=== PATIENT | male | born 1980 | race Caucasian/White ===

== ENCOUNTER 2022-10-26 01:44 | Observation (INO) | payer OTHER, SELFPAY ==
--- NOTE | 2022-10-25 | XACV_ITS ---
Exam Room: [facility] Ht: 193 cm Wt: 131 kg BSA: 2.69 m2 Gender: Male : 1980 Any Known Allergies: No known allergies Exam Priority: Routine Procedure(s): Procedure Description: Diagnostic procedure Procedure Description: PCI procedure Procedure Description: Left Heart Catheterization Procedure Description: Coronary IVUS Procedure Description: Drug Eluting Coronary Stent Procedure Description: PTCA Procedure Description: Miscellaneous Procedure Description: ACT Procedure Description: Coronary Angiography Diagnostic Cath Status: Urgent Diagnostic Findings * Russell Dennis is a 42 year old male with past medical history of insulin-dependent diabetes mellitus, hypertension, coronary artery disease, history of acute coronary syndrome in May 2022 and hypothyroidism. Patient was admitted at [facility] and had 3 stents to px to mid LAD and 2 stents to LCx and balloon angioplasty of OM2 on 30 May 2022. Echocardiogram showed LV function of 45% at the time. Patient was doing well since his stents until in September when while exercising in cardiac rehab he developed some chest pain and was hospitalized. He was set up for an outpatient stress test. Since then patient has been having exertional chest discomfort that lasts about 5 minutes or so and is relieved spontaneously. He presented here with chest pains and is being managed for NSTEMI. * Angiography shows a left coronary dominant system. * Separate ostia for left anterior descending and circumflex artery in left coronary sinus. * Left anterior descending artery with ostial 99% stenosis. * Dominant circumflex artery with patent stents in proximal and mid circumflex artery. Very small OM1 and good sized OM2. * Small non dominant right coronary artery with chronic total occlusion of proximal right coronary artery. * Case was discussed and images were reviewed with Dr. Blanchard. PCI Status: Urgent PCI Indication: NSTE - ACS Interventional Findings * Procedure detail: Patient had separate ostia of the left circumflex artery had LAD. As for diagnostic catheterization, selective engagement of LAD could not be performed from radial access, we switched to femoral access. Diagnostic images showed critical ostial to proximal LAD stenosis prior to old stent. LAD was selectively engaged with JL 4 guide catheter. IV heparin was administered to maintain ACT above 250s. 0.014 run-through guidewire was used to cross the critical ostial to proximal LAD stenosis was put in distal vessel. We performed IVUS to size the vessel and look at prior stents. Proximal LAD stent was underexpanded. We predilated the stenosis with 2.5 x 15 mm semicompliant balloon. This was followed with placement of 3.5 x 22 mm resolute Alexi drug-eluting stent. Stent and prior stents were postdilated with a 3.75 mm NC balloon. At this time final angiogram was performed that showed excellent stent expansion, no residual stenosis and SHAAN-3 flow. IVUS also confirmed these findings. Guidewire and guide catheter were removed. Patient left the Construction Skills Teacher in a stable condition.. * Proximal Left Anterior Descendin% stenosis treated with a AB TREK 2.50X15 RX BALLOON, MDT R ALEXI 3.5X22 AYANNA, and MDT NC EUPHORA RX [id number] BALLOON. 0% residual stenosis, SHAAN: 3 flow. * Proximal Left Anterior Descendin% stenosis treated with a AB TREK 2.50X15 RX BALLOON, MDT R ALEXI 3.5X22 AYANNA, and MDT NC EUPHORA RX [id number] BALLOON. * Mid Left Anterior Descendin% stenosis treated with a MDT HAMLET EUPHORA RX [id number] BALLOON. 0% residual stenosis, SHAAN: 3 flow. Conclusions Critical ostial-proximal LAD stenosis. Status post successful IVUS guided revascularization with AYANNA x1. Left anterior descending artery with ostial 99% stenosis. Patent stents in circumflex and mid left anterior descending artery. Proximal Left Anterior Descending was treated with a Balloon, Drug Eluting Stent, and Balloon. Mid Left Anterior Descending was treated with a Balloon. Recommendations Return to inpatient for close monitoring and routine cath care. Statin and aspirin 81mg lifelong, if tolerated. Effient and Aspirin x 12 months. Outpatient cardiology follow-up in 4 weeks. Pressures Phase:Rest AO : 94 / 60 ( 70 ) @ 9:36:00 AM 99 / 37 ( 58 ) @ 9:36:00 AM 112 / 70 ( 87 ) @ 9:41:00 AM 102 / 68 ( 82 ) @ 9:59:00 AM 103 / 73 ( 88 ) @ 10:16:00 AM 93 / 68 ( 80 ) @ 10:31:00 AM 104 / 73 ( 88 ) @ 10:50:00 AM 98 / 76 ( 88 ) @ 10:53:00 AM LV : 118 / 5 / 21 @ 9:35:00 AM 103 / 6 / 19 @ 9:36:00 AM Valves Phase:DefaultPhase AV : 8.0 @ 11:52:24 AM AV Mean Gradient: 8.0 @ 11:52:24 AM Hemodynamic Data Phase:Rest AO : 94.0 / 60.0 ( 70.0 ) @ 9:36:00 AM 99.0 / 37.0 ( 58.0 ) @ 9:36:00 AM 112.0 / 70.0 ( 87.0 ) @ 9:41:00 AM 102.0 / 68.0 ( 82.0 ) @ 9:59:00 AM 103.0 / 73.0 ( 88.0 ) @ 10:16:00 AM 93.0 / 68.0 ( 80.0 ) @ 10:31:00 AM 104.0 / 73.0 ( 88.0 ) @ 10:50:00 AM 98.0 / 76.0 ( 88.0 ) @ 10:53:00 AM Clinical Evaluation EBL: 5mL-10mL Procedural Details Procedure Consent Obtained. Pre-Procedure Time Out. Identified patient by full name and date of as verbalized by the patient/guarantor. Does the consent match the physician's order: Yes. Accurate & Complete Informed Consent: Yes. Inpatient/Outpatient History & Physical on Chart: Yes. If H&P is completed, is and addenduem needed: Yes. Visualize and Verify Site with Patient/Guarantor: N/A. Relevant Radiology Images available: Yes. The risks, benefits, and alternatives of sedation and/or procedure were discussed by physician. The patient agrees to continue. Procedure started. [facility] Clinical Fraility Score: 3: Managing Well. Construction Skills Teacher Indications: ACS > 24 hours/NSTEMI. Chest Pain Symptom Assessment: Typical Angina Symptoms. Cardiovascular Instability: No. Correct patient, site and procedure confirmed by cath team. Current diagnosis: NSTEMI. PERRLA. Strong, equal hand training project manager bilaterally. Lungs clear x 5 lobes. IV Site on Arrival: 18 gauge in the left anticubital. IV Fluids: 0.9% NaCl at KVO. 0 mL infused prior to labor economics professor. Pre Procedural Pulses: bilateral dorsalis pedis was 3+. Pre Procedural Pulses: bilateral posterior tibial was 3+. Pre Procedural Pulses: bilateral radial was 3+. Oxygen started at 2liters/min via nasal canula. right groin was prepped with chloroprep then draped in the usual sterile fashion. right radial was prepped with chloroprep then draped in the usual sterile fashion. Physician notified. Baseline sample Acquired. HR: 58 BPM. Patients spouse, Rola, on her way to the hospital. Dr. Milton will update when available. Equipment: 6F - Radial. Cardiac Cath Pack. ACIST Manifold Kit Model BT 2000. Heparinized Saline (2 units/mL), 1000 mL bag. Physician arrived. Physician scrubbed in. Immediate Pre-Procedure Time Out. Correct Patient: Yes; Correct Procedure: Yes; Correct Site: Yes; Correct Patient Position: Yes; Correct Supplies: Yes; Dried Flammable Prep: Yes; Blood Products Available: N/A;. Lidocaine 1% infiltrated to the right radial. Arterial access obtained. A 5 romanian TIG catheter in over the exchange J wire. Multiple views taken of left coronary artery. EDP Sample taken: LV 118/5,21; HR: 69 BPM; SpO2: 97%. Pullback taken: LV 103/6,19; AO 94/60(70); Mean: 8mmHg, Peak to Peak: 8mmHg, SEP: 13sec/min; HR: 62 BPM; SpO2: 96%. Catheter redirected to the RCA unsuccessfully. Catheter removed over the exchange J wire. A 5 romanian TIG catheter in over the exchange J wire. Catheter removed over the exchange J wire. A 5 romanian JL3.5 catheter in over the exchange J wire. Exchange wire out. Hand injection of the right arm performed through the JL 3.5 catheter. 0.035 x 260cm Stiff Angled glidewrie in to advance the JL 3.5. Glidewire out, exchange J wire in. Catheter removed over the exchange J wire. A 5 romanian JR4 catheter in over the exchange J wire. Cineography of the RCA performed. Catheter removed over the exchange J wire. Dr. Blanchard scrubbed in. 6 romanian XB 3.5 guide catheter was inserted over the exchange J wire. Add inventory: Co-Entertainment Centre Manager, endoflator. Dr. Milton scrubbed out. Runthrough guidewire was advanced through the guide catheter to lesion in the ostial LAD. Dr Milton updated the spouse, Rola, in the labor economics professor waiting room. Wire out. Guide catheter out. Aborting radial access, moving to femoral. A TR Band was successful obtaining hemostatsis at the Right Radial artery insertion site. TR band placed. Hemostasis obtained. Lidocaine 1% infiltrated to the right groin. Add inventory: micropuncture kit, 6 fr femoral sheath. Arterial access obtained with micropuncture set. A 5 romanian JL4 catheter in over the exchange J wire. Multiple views taken of left coronary artery. Catheter removed over the exchange J wire. 6 romanian JL 4 guide catheter was inserted over the exchange J wire. Runthrough guidewire was advanced through the guide catheter to lesion in the ostial LAD. ACT drawn. Results 436 seconds. Therapeutic limits - pre-heparin administration 90-150 seconds and monitoring heparin during a vascular procedure >250 seconds. IVUS catheter in, unable to cross, removed intact. Inflation number : 1 A AB TREK 2.50X15 RX BALLOON was prepped and advanced across the Prox LAD , then inflated to 10 REY for 0:26 seconds. Inflation number: 2 The AB TREK 2.50X15 RX BALLOON was reinflated across the Prox LAD, to 10 REY for 0:14 seconds. Inflation number: 3 The AB TREK 2.50X15 RX BALLOON was reinflated across the Prox LAD, to 10 REY for 0:22 seconds. Balloon out. IVUS catheter in. IVUS run performed. IVUS catheter out. Inflation Number : 4 A MDT R ALEXI 3.5X22 AYANNA -Lot Number# [id number] was prepped and advanced across the Prox LAD. The stent was deployed at 12 REY for 0:32 seconds. Exp 2025-02-19. Stent balloon out over wire. Results checked. ACT drawn. Results 512 seconds. Therapeutic limits - pre-heparin administration 90-150 seconds and monitoring heparin during a vascular procedure >250 seconds. Inflation number : 1 A MDT NC EUPHORA RX 3.28L73VO BALLOON was prepped and advanced across the Mid LAD , then inflated to 10 REY for 0:15 seconds. Inflation number: 2 The MDT NC EUPHORA RX 3.90M27WV BALLOON was reinflated across the Mid LAD, to 10 REY for 0:16 seconds. Inflation number: 5 The MDT NC EUPHORA RX 3.31Y74OH BALLOON was reinflated across the Prox LAD, to 14 REY for 0:15 seconds. Inflation number: 6 The MDT NC EUPHORA RX 3.87L99SD BALLOON was reinflated across the Prox LAD, to 12 REY for 0:12 seconds. Balloon out. Results checked. IVUS catheter in. IVUS run performed. IVUS catheter out. Wire out. Guide catheter out over the exchange J wire. ACT drawn. Results 200 seconds. Therapeutic limits - pre-heparin administration 90-150 seconds and monitoring heparin during a vascular procedure >250 seconds. A Right femoral angiogram was performed to determine safe placement of closure device. A Angio-Seal VIP (St. Bo) was successful obtaining hemostatsis at the Right Femoral artery insertion site. Angioseal placed without complications. No signs or symptoms of hematoma noted. Sterile dressing applied per usual sterile fashion. Lot #[id number]. Exp. 2023-05-01. Post Procedure: Pulses reassessed and unchanged. PERRLA. Strong, equal hand training project manager bilaterally. No VTE prophylaxis required. Complications: none. Estimated blood loss: 5mL-10mL. PCI Indication: NSTE. Post-op diagnosis: PCI of the ostial LAD. PTCA of the mid LAD for In stent stenosis, chronically occluded RCA. Medication's Wasted: Nitro = 49.6 mg. Medication's Wasted: Other = Versed 1 mg. Total IV fluids: 142 mL. Responsiveness - Normal response to verbal stimuli; alert and oriented, PERRLA. Airway - Unaffected, no intervention required; spontaneous ventilation. Circulation: W/N/L, pulses unchanged. Nausea/Vomiting: No. Procedure completed. Patient transferred by bed to 1st floor. Vital chart was stopped. Access Site Site: Right Radial artery Sheath Size: 5 Fr Hemostasis Method: TR Band Hemostasis Success: Successful Site: Right Femoral artery Sheath Size: 6 Fr Hemostasis Method: Angio-Seal VIP (St. Bo) Hemostasis Success: Successful Procedure Medications Start: 9:16 AM Stop: 9:16 AM Medication: Versed Amount: 1 mg Route: I.V. Start: 9:16 AM Stop: 9:16 AM Medication: Fentanyl Amount: 50 mcg Route: I.V. Start: 9:17 AM Stop: 9:17 AM Medication: Versed Amount: 1 mg Route: I.V. Start: 9:17 AM Stop: 9:17 AM Medication: Fentanyl Amount: 50 mcg Route: I.V. Start: 9:23 AM Stop: 9:23 AM Medication: Nitrogylcerin Amount: 200 mcg Route: I.A. Start: 9:24 AM Stop: 9:24 AM Medication: Heparin Amount: 5000 units Route: I.V. Start: 9:32 AM Stop: 9:32 AM Medication: Versed Amount: 1 mg Route: I.V. Start: 9:52 AM Stop: 9:52 AM Medication: Verapamil Amount: 5 mg Route: I.A. Start: 10:10 AM Stop: 10:10 AM Medication: Nitrogylcerin Amount: 200 mcg Route: I.A. Start: 10:19 AM Stop: 10:19 AM Medication: Heparin Amount: 2000 units Route: I.V. Start: 10:34 AM Stop: 10:34 AM Medication: Heparin Amount: 5000 units Route: I.V. Start: 10:52 AM Stop: 10:52 AM Medication: Versed Amount: 1 mg Route: I.V. Start: 10:54 AM Stop: 10:54 AM Medication: Heparin Amount: 2000 units Route: I.V. Start: 10:59 AM Stop: 10:59 AM Medication: Heparin Amount: 3000 units Route: I.V. I, the attending physician, have reviewed and verified all procedure medications. Yes, all medications given per verbal order History/Risk Factors Hypertension: Yes Dyslipidemia: Yes Peripheral Arterial Disease (PAD): No Myocardial Infarction (CT): No Obesity: Yes Renal Disease: No Tobacco Use: Former Prior Interventions PCI: Yes CABG: No Valve Surgery: No Date of PCI: 05/30/2022 Report Signatures IPV Workflow Finalized by Mike Blanchard MD on 11/06/2022 11:00 AM Cath Workflow Finalized by Mike Blanchard MD on 11/06/2022 11:00 AM
[2022-10-26] VITALS (17 sets, daily range): BP systolic 112–175; BP diastolic 57–97; PULSE 58–106; RESP 10–24; TEMP 36.5–36.8; O2SAT 92–98; BMI 34.0
--- NOTE | 2022-10-26 02:23 | XRR_ITS ---
PROCEDURE INFORMATION: Exam: XR Chest Exam date and time: 10/26/2022 2:28 AM Age: 42 years old Clinical indication: Pain; Chest pressure; Additional info: Cp TECHNIQUE: Imaging protocol: Radiologic exam of the chest. Views: 1 view. COMPARISON: No relevant prior studies available. FINDINGS: Lungs: Low lung volumes accentuate bronchovascular markings and cardiac silhouette. No consolidation. Pleural spaces: No pleural effusion. No pneumothorax. Heart/Mediastinum: Heart size is within normal limits. Bones/joints: No acute fracture. XR/XR chest 1V portable [id number] IMPRESSION: No acute cardiopulmonary findings.
--- NOTE | 2022-10-26 02:23 | ECG_ITS ---
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 Measurements Intervals Ranger Rate: 106 P: 59 WY: 142 QRS: 15 QRSD: 101 T: 80 QT: 323 QTc: 430 Interpretive Statements SINUS TACHYCARDIA POSSIBLE LEFT ATRIAL ENLARGEMENT [-0.1mV P-WAVE IN V1/V2] SEPTAL MYOCARDIAL INFARCTION , OF INDETERMINATE AGE [40+ ms Q WAVE IN V1/V2] No previous ECG available for comparison Electronically Signed On 10-26-2022 8:14:02 FORGING PRESS OPERATOR by Radha Milton M.D. [id number]
--- NOTE | 2022-10-26 02:24 | W.ED.CHESTPA ---
HPI - Chest Pain General: Chief Complaint: Chest Pain Stated Complaint: CPhight B/P Time Seen by Provider: 10/26/22 02:01 Source: patient and family History of Present Illness: 42-year-old type I diabetic male with a history of coronary disease visiting family from [place]. He presents with chest discomfort that started around 1 or 130. He states that he was not doing anything more strenuous than climbing stairs. He has had several bouts on and off with chest pain since stents were placed in the summertime he believes 3 to the front of the heart, 2 to to the back . He was hospitalized in [place] September for similar symptoms, but EKGs and lab work were not remarkable at that time. He has a stress test scheduled back in [place] for 10/30. His pain is much improved now, a 1 or 2 out of 10. This is after nitroglycerin at home. He states that his blood pressure was a bit high as well as his heart rate and he was short of breath with crackly breathing . Pain radiates to his left elbow. MD complaint: chest pain Pertinent past history: coronary artery disease Onset (ago): hour(s) Timing of current episode: constant Prior episodes: Yes Onset: during rest Pain location: substernal Pain radiation: left arm and neck Quality: tightness and aching Relieving factors: nitroglycerin Exacerbating factors: exertion Associated symptoms: Reports dyspnea; Deny abdominal pain, diaphoresis, fever(s), nausea, palpitations or vomiting Treatment prior to arrival: nitroglycerin Review of Systems Const: Denies: fever(s), chills or diaphoresis ENMT: Denies: throat pain Card: Reports: chest pain; Denies: palpitations Resp: Reports: dyspnea; Denies: productive cough or non-productive cough GI: Denies: abdominal pain, nausea or vomiting Musc: Denies: neck pain Neuro: Denies: headache(s) Physical Exam Const: GENERAL APPEARANCE: cooperative, ill appearing and diaphoretic NUTRITIONAL APPEARANCE: obese ORIENTATION/CONSCIOUSNESS: Yes awake HENMT: COMMON NORMALS: normocephalic, atraumatic and Normal external nose present HEAD & SCALP: normocephalic and atraumatic FACE & SINUS: normal facial exam NOSE: Normal external nose present Eye: COMMON NORMALS: Equal, round and reactive pupils present and EOMs intact bilaterally PUPIL: Yes Equal, round and reactive pupils present Neck/C-Spine: GENERAL: Yes trachea midline Chest: CHEST: Yes Symmetrical chest wall rise Resp: COMMON NORMALS: normal respiratory effort, No retractions, No use of accessory muscles and clear to auscultation bilaterally AUSCULTATION: clear to auscultation bilaterally Cardio: COMMON NORMALS: regular rate and regular rhythm RATE: regular rate RHYTHM: regular rhythm GI: COMMON NORMALS: Normal to inspection, nondistended, normoactive bowel sounds present Extremity: COMMON NORMALS: no pedal edema Neuro: MILLA COMA SCALE: document GCS findings Milla coma scale eye opening: Spontaneous Milla coma scale verbal response: Orientated [place] coma scale motor response: Obey commands Milla coma scale total score: 15 SENSORY EXAM: Yes extremities (intact) Psych: COMMON NORMALS: speech normal SPEECH: Yes normal speech Skin: COMMON NORMALS: no rashes or lesions noted GENERAL SKIN EXAM: no rashes or lesions noted Course Consultations: Consultation #1: Dar Time: 04:28 Vital Signs: Vital signs: Vital Signs Temperature 98.2 F 10/26/22 01:50 Pulse Rate 82 10/26/22 03:22 Respiratory Rate 17 10/26/22 03:22 Blood Pressure 134/92 10/26/22 03:22 Pulse Oximetry 92 10/26/22 03:22 Oxygen Delivery Me thod 10/26/22 03:22 MDM - Chest Pain Medical Decision Making 42-year-old male with coronary disease history. Chest discomfort is relieved now after Nitropaste, and metoprolol. EKG initially revealed sinus tachycardia with a normal axis and intervals. Q waves are present in V2 and lead III. Nonspecific ST wave changes otherwise. His first troponin was 21. 2-hour is 81. Again pain is gone now. With his history, non-STEMI is suspected. He is given a shot of Lovenox here after aspirin and nitroglycerin paste. He will be observed. Hospitalist is notified. He will see the patient. Lab Data 10/26/22 02:09 10/26/22 02:09 Radiology Impressions Chest X-Ray 10/26/22 02:23 IMPRESSION: No acute cardiopulmonary findings. Laboratory Results WBC 5.8 10^3/uL (4.0-10.0) 10/26/22 02:09 RBC 5.29 10^6/uL (4.1-5.3) 10/26/22 02:09 Hgb 15.8 g/dL (11.7-16.6) 10/26/22 02:09 Hct 48.1 % (42.0-52.0) 10/26/22 02:09 MCV 90.9 fl (80-94) 10/26/22 02:09 MCH 29.9 pg (28.0-34.0) 10/26/22 02:09 MCHC 32.8 g/dL (30.0-36.0) 10/26/22 02:09 RDW 12.9 % (12.1-15.1) 10/26/22 02:09 Plt Count 204 10^3/cmm (130-400) 10/26/22 02:09 MPV 10.0 fL (7.4-10.4) 10/26/22 02:09 Neut % (Auto) 57.9 % 10/26/22 02:09 Lymph % (Auto) 27.9 % 10/26/22 02:09 [place] % (Auto) 11.3 % 10/26/22 02:09 Eos % (Auto) 2.1 % 10/26/22 02:09 Baso % (Auto) 0.5 % 10/26/22 02:09 Neut # (Auto) 3.34 10^3/uL (1.8-7.7) 10/26/22 02:09 Lymph # (Auto) 1.6 10^3/uL (0.8-4.8) 10/26/22 02:09 [place] # (Auto) 0.7 10^3/uL (0.2-0.9) 10/26/22 02:09 Eos # (Auto) 0.1 10^3/uL (0.0-0.8) 10/26/22 02:09 Baso # (Auto) 0.0 10^3/uL (0.0-0.1) 10/26/22 02:09 Nucleated RBC % (auto) 0 % 10/26/22 02:09 Nucleated RBCs # 0.0 /100WBC 10/26/22 02:09 D-Dimer 0.34 ug/mIFEU (0-0.59) 10/26/22 02:09 Sodium 140 mmol/L (136-145) 10/26/22 02:09 Potassium 4.3 mmol/L (3.5-5.1) 10/26/22 02:09 Chloride 107 mmol/L (98-107) 10/26/22 02:09 Carbon Dioxide 24 mmol/L (22-29) 10/26/22 02:09 Anion Gap 13.3 (5-19) 10/26/22 02:09 BUN 12 mg/dL (6-20) 10/26/22 02:09 Creatinine 0.9 mg/dL (0.7-1.2) 10/26/22 02:09 GFR Calculation 92.5 mL/min (90-130) 10/26/22 02:09 Glucose 222 mg/dL (65-115) H 10/26/22 02:09 Calculated Osmolality 297 mOsm/kg (285-295) H 10/26/22 02:09 Calcium 9.3 mg/dL (8.5-10.5) 10/26/22 02:09 Total Bilirubin 0.3 mg/dL (0.15-1.2) 10/26/22 02:09 AST 32 U/L (0-40) 10/26/22 02:09 ALT 63 U/L (0-41) H 10/26/22 02:09 Alkaline Phosphatase 66 U/L (40-130) 10/26/22 02:09 Troponin T Baseline 62 ng/L (0-15) H 10/26/22 02:09 Troponin T 120 Minute 80.76 ng/L (0-15) H 10/26/22 03:33 Delta Troponin T 18.76 ABS# (0-10) H* 10/26/22 03:33 NT-Pro-B Natriuret Pep 180 pg/mL (0-125) H 10/26/22 02:09 Total Protein 6.9 g/dL (6.6-8.7) 10/26/22 02:09 Albumin 4.1 g/dL (3.5-5.2) 10/26/22 02:09 Globulin 2.8 g/dL (1.3-4.6) 10/26/22 02:09 Lipase 35 U/L (13-60) 10/26/22 02:09 Critical Care Time Critical Care Time: Critical Care Time: Yes Total Critical Care Time: 35 Attestation: This case had a high probability of a clinically significant, sudden, or life threatening deterioration of this patient's condition which required my full and direct attention, intervention and personal management. Time is independent of any procedures performed Discharge Plan Discharge Clinical Impression: Chest pain, Non-STEMI (non-ST elevated myocardial infarction) Condition: Fair Coding Level of Care Code ED Optomechanical Engineer for [place] Fwd Exam Comprehensive
[2022-10-26 02:30] LABS: Basophils % 0.5 %; Eosinophils # 0.1 10^3/uL (0.0-0.8); Eosinophils % 2.1 %; Hematocrit 48.1 % (42.0-52.0); Hemoglobin 15.8 g/dL (11.7-16.6); Lymphocytes # 1.6 10^3/uL (0.8-4.8); Lymphocytes % 27.9 %; Mean Corpuscular HGB Conc 32.8 g/dL (30.0-36.0); Mean Corpuscular Hemoglobin 29.9 pg (28.0-34.0); Mean Corpuscular Volume 90.9 fl (80-94); Monocytes # 0.7 10^3/uL (0.2-0.9); Monocytes % 11.3 %; Neutrophils # 3.34 10^3/uL (1.8-7.7); Neutrophils % 57.9 %; Nucleated Red Blood Cells % 0 %; Platelet Count 204 10^3/cmm (130-400); Red Blood Count 5.29 10^6/uL (4.1-5.3); Red Cell Distribution Width 12.9 % (12.1-15.1); White Blood Count 5.8 10^3/uL (4.0-10.0)
[2022-10-26 02:37] LABS: D Dimer 0.34 ug/mIFEU (0-0.59)
[2022-10-26 02:41] LABS: Troponin(5th) Baseline 62 ng/L (0-15)
[2022-10-26 02:51] LABS: Alanine Aminotransferase 63 U/L (0-41); Albumin Level 4.1 g/dL (3.5-5.2); Alkaline Phosphatase 66 U/L (40-130); Anion Gap 13.3 (5-19); Aspartate Amino Transferase 32 U/L (0-40); Blood Urea Nitrogen 12 mg/dL (6-20); Calcium 9.3 mg/dL (8.5-10.5); Carbon Dioxide 24 mmol/L (22-29); Chloride 107 mmol/L (98-107); Globulin 2.8 g/dL (1.3-4.6); Glomerular Filtration Rate 92.5 mL/min (90-130); Glucose 222 mg/dL (65-115); Lipase 35 U/L (13-60); NT Pro B Type Natriuretic Pept 180 pg/mL (0-125); Osmolality Calculated 297 mOsm/kg (285-295); Potassium 4.3 mmol/L (3.5-5.1); Sodium 140 mmol/L (136-145); Total Bilirubin 0.3 mg/dL (0.15-1.2); Total Protein 6.9 g/dL (6.6-8.7)
[2022-10-26] MEDS: metoprolol tartrate 1 mg/1 mL SDV 5 mL 5 MG IVP (02:54)
[2022-10-26] MEDS: nitroglycerin 1 gm/inch oint Pkt 1 INCH TOPICAL (02:54)
[2022-10-26] MEDS: aspirin 325 mg Tablet PO (02:54)
[2022-10-26 04:07] LABS: Troponin 5 2HR 80.76 ng/L (0-15)
[2022-10-26 04:09] LABS: Troponin 5 2HR Delta 18.76 ABS# (0-10)
--- NOTE | 2022-10-26 04:23 | ECG_ITS ---
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 Measurements Intervals [place] Rate: 79 P: 39 DE: 136 QRS: 15 QRSD: 104 T: 73 QT: 363 QTc: 416 Interpretive Statements SINUS RHYTHM No previous ECG available for comparison Electronically Signed On 10-26-2022 8:23:31 MANAGER ONLINE by Radha Milton M.D. [id number]
[2022-10-26] MEDS: enoxaparin 120 mg/0.8 mL Syringe SUBCUT (05:06)
--- NOTE | 2022-10-26 06:03 | P.HP_ITS ---
Providers/Chief Complaint Admitting Physician: Stephen Dodge MD Chief Complaint: CP, beatriz B/P History of Present Illness Russell Dennis is a 42 year old male who has history of coronary disease, recent stents placed and May this year in [place], he is visiting his family for [place], around 10:30 PM he start experiencing chest pain. Patient is stating that this time around 10:30 PM he was at rest when he started experiencing pressure-like sensation which was radiating towards his left arm, he is endorsing similar pain when the stent was placed this year, at that time his blood pressure was high systolic pressure 150s he tried to calm himself down, however his chest pain was recurrent, he took nitroglycerin which eased off his pain and blood pressure improved slightly, around 1 AM he woke up with chest pain at that time his blood pressure was high again it took couple of doses of nitroglycerin, he did not call ambulance, total he took 4 tablets of nitroglycerin that reduce his blood pressure to normal it took the edge off his pain. He denies chest nausea, vomiting, diaphoresis In the ER he has been diagnosed with NSTEMI, he takes Effient and aspirin, loading dose of aspirin has been given along therapeutic Lovenox EKG showing T wave inversion anterior leads no signs of infarction Patient is chest pain-free at the time of evaluation D-dimer unremarkable Delta troponin 18 Review of Systems Const: Denies: fever(s) Eyes: Denies: change in vision ENMT: Denies: throat pain Card: Reports: chest pain Resp: Denies: dyspnea GI: Denies: abdominal pain : Denies: flank pain Musc: Denies: neck pain Skin/Breast: Denies: rash Neuro: Denies: headache(s) Psych: Denies: anxiety Endo: Denies: polyuria Andres/Lymph: Denies: easy bruising All/Imm: Denies: urticaria Medications/Allergies Home Medications Medication Instructions Recorded Confirmed Last Taken Type aspirin 81 mg capsule 81 mg PO DAILY 10/26/22 10/26/22 10/25/22 08:00 History atorvastatin 80 mg tablet (Lipitor) 80 mg PO QPM 10/26/22 10/26/22 10/25/22 21:00 History bisoprolol fumarate 5 mg tablet 2.5 mg PO DAILY 12/10/26/22 10/25/22 08:00 History ezetimibe 10 mg tablet (Zetia) 10 mg PO DAILY 10/26/22 10/26/22 10/25/22 08:00 History insulin aspart 6 unit SUBCUT QPM 10/26/22 10/26/22 10/25/22 18:00 History (niacinamide)(U-100) 100 unit/mL(3 mL) subcutaneous pen insulin aspart 8 unit SUBCUT QAM 10/26/22 10/26/22 10/25/22 08:00 History (niacinamide)(U-100) 100 unit/mL(3 mL) subcutaneous pen insulin degludec 200 unit/mL (3 80 unit SUBCUT BEDTIME 10/26/22 10/26/22 10/25/22 20:00 History mL) subcutaneous pen (Tresiba FlexTouch U-200 insulin) isosorbide mononitrate 30 mg 30 mg PO QAM 10/26/22 10/26/22 10/25/22 08:00 History tablet,extended release 24 hr levothyroxine 137 mcg tablet 137 mcg PO DAILY 10/26/22 10/26/22 10/25/22 07:00 History losartan 25 mg tablet 25 mg PO DAILY 10/26/22 10/26/22 10/25/22 08:00 History nitroglycerin 0.4 mg sublingual 0.4 mg sublingual Q5M PRN chest 10/26/22 10/26/22 10/26/22 01:30 History tablet (Nitrostat) pain prasugrel 10 mg tablet (Effient) 10 mg PO DAILY 10/26/22 10/26/22 10/25/22 08:00 History Allergies Allergy/AdvReac Type Severity Reaction Status Date / Time No Known Allergies Allergy Verified 10/26/22 03:48 PFSH Acute PFSH: Medical History Coronary artery disease Diabetes Hypertension Surgical History Coronary angioplasty status Family History Other Diabetes Social History Smoking and tobacco status: former smoker Alcohol intake: former Substance/Drug Use: never Housing: House Vitals/I&O/Wt Last Vital Signs Temp 98.1 F 10/26/22 05:38 Pulse 72 10/26/22 05:55 Resp 12 10/26/22 05:38 BP 131/83 10/26/22 05:38 Pulse Ox 96 10/26/22 05:38 O2 Del Method 10/26/22 05:38 Weight last 48 hrs Weight 127.006 kg Physical Exam Narrative: Patient is laying supine Chest pain-free Normal urodynamics Abdomen soft S1, S2 Euvolemic EOMI, PERRLA Nonfocal neuro exam Awake and alert Laying supine Appropriate mood and affect Appears stated age Data 10/26/22 02:09 10/26/22 02:09 A&P Assessment and plan (1) Chest pain: Plan Unstable angina NSTEMI Started therapeutic Lovenox Loading dose of aspirin given along effient Patient will need cardiology consultation today Check echo Currently chest pain-free D-dimer unremarkable Hypertensive urgency: Patient takes losartan and Imdur, Currently normotensive Type 2 diabetes continue moderate dose sliding scale along long-acting insulin I will keep patient n.p.o. until evaluated by the cardiology today Full code Request records from [facility] Medical Necessity Statement*: More than 2 midnights anticipated Time Spent in Patient Care: 40 Coding Level of Care Code Acute Still Operator Helper for Costa Fegruson Diagnoses Chest pain R07.9
--- NOTE | 2022-10-26 06:04 | USCV_ITS ---
Russell Dennis Age: 42 Gender: M : 1980 Exam Date: 10/26/2022 07:04 Ordering Phys: Stephen Dodge MD Technologist: Maxwell Judd Exam Location: [facility] [place] Indication: NSTEMI BP: 131 / 83 HR: 71 Rhythm: Sinus Technical Quality: Adequate MEASUREMENTS (Male / Female) Normal Values 2D ECHO LV Diastolic Diameter PLAX 4.5 cm 4.2 - 5.9 / 3.9 - 5.3 cm LV Systolic Diameter PLAX 3.1 cm IVS Diastolic Thickness 1.2 cm 0.6 - 1.0 / 0.6 - 0.9 cm IVS Systolic Thickness 2.0 cm LVPW Diastolic Thickness 1.4 cm 0.6 - 1.0 / 0.6 - 0.9 cm LVPW Systolic Thickness 1.8 cm LVOT Diameter 2.0 cm LV Ejection Fraction 2D Teich 48.3 % LV Ejection Fraction MOD 2C 51.7 % LV Ejection Fraction 2C AL 52.1 % LA Diameter 4.2 cm Aorta at Sinotubular Diameter 3.0 cm M-MODE Aortic Annulus Diameter 3.8 cm LA Ao Ratio MM 1.2 MV E Point Septal Separation 1.6 cm DOPPLER AV Peak Velocity 114.0 cm/s LVOT Peak Velocity 85.0 cm/s AV Area Cont Eq vti 3.2 cm squared AV Area Cont Eq pk 2.5 cm squared MV Area PHT 5.0 cm squared Mitral E to A Ratio 0.9 MV E' Velocity 71.0 cm/s Mitral E to LV E' Septal Ratio 9.6 TR Peak Velocity 179.0 cm/s TR Peak Gradient 12.8 mmHg TV Peak E Velocity 76.0 cm/s Right Atrial Pressure 3.0 mmHg Pulmonary Artery Systolic Pressu 15.8 mmHg PV Peak Velocity 81.0 cm/s RV Acceleration Time 0.2 s FINDINGS Left Ventricle Normal left ventricular size, systolic function and mildly increased wall thickness, with no regional wall motion abnormalities. Left ventricular ejection fraction is estimated at 65 %. Normal diastolic function. Right Ventricle Normal right ventricular size and systolic function. RVSP could not be calculated due to incomplete tricuspid regurgitation velocity profile. Right Atrium Normal right atrial size. Left Atrium Normal left atrial size. Mitral Valve Structurally normal mitral valve. No mitral valve stenosis. No mitral valve regurgitation. Aortic Valve Structurally normal trileaflet aortic valve. No aortic valve stenosis. No aortic valve regurgitation. Tricuspid Valve Structurally normal tricuspid valve. No tricuspid valve stenosis. Trace tricuspid valve regurgitation. Pulmonic Valve Structurally normal pulmonic valve. No pulmonary valve stenosis. Trace pulmonary valve regurgitation. Pericardium No pericardial effusion. Aorta Normal size aortic root and proximal ascending aorta. IVC Normal IVC dimension with >50% respiratory change of the inferior vena cava. CONCLUSIONS 1. Normal left ventricular size, systolic function and mildly increased wall thickness, with no regional wall motion abnormalities. Left ventricular ejection fraction is estimated at 65 %. Normal diastolic function. 2. Normal right ventricular size and systolic function. 3. No significant valvular abnormality. 4. No prior similar studies to compare. Radha Milton MD (Electronically Signed) Final Date: 26 October 2022 11:31 S
[2022-10-26 06:11] LABS: Glucose Point of Care 204 mg/dL (70-110)
[2022-10-26 06:33] LABS: Estmated Average Glucose 146; Hemoglobin A1C 6.7 % (4.0-6.0)
[2022-10-26 07:18] LABS: Vitamin B12 410 pg/mL (232-1245)
--- NOTE | 2022-10-26 08:23 | ECG_ITS ---
[facility] Test Date: 2022-10-26 Pat Name: Russell Dennis Department: Room: 111 Gender: Male Strategy Manager: : 1980 Requested By: Carrillo Oreilly Order Number: [id number] Jelena MD: Radha Milton M.D. Measurements Intervals [place] Rate: 60 P: 47 VT: 158 QRS: 15 QRSD: 89 T: 76 QT: 414 QTc: 417 Interpretive Statements SINUS RHYTHM NONSPECIFIC T-WAVE ABNORMALITY Compared to ECG 10/26/2022 04:37:51 T-wave abnormality now present Electronically Signed On 10-27-2022 6:08:08 CYTOGENETICS TECHNOLOGIST by Radha Milton M.D. [id number]
[2022-10-26] MEDS: levothyroxine 137 mcg Tablet PO (08:47)
[2022-10-26] MEDS: aspirin 81 mg EC Tablet PO (08:47)
[2022-10-26] MEDS: prasugrel 10 MG Tablet PO (08:47)
[2022-10-26] MEDS: atorvastatin 40 mg Tablet 80 MG PO (08:48)
[2022-10-26] MEDS: lisinopril 10 mg Tablet PO (08:48)
[2022-10-26 09:02] LABS: Troponin 5 6HR 169.8 ng/L (0-15); Troponin 5 6HR Delta 107.8 ng/L (0-12)
--- NOTE | 2022-10-26 09:46 | PM.CONSULT ---
Providers/Reason For Consult Consulting Physician/Specialty*: Dr. Milton, Cardiology Reason for Consult*: NSTEMI Attending Physician: Zay Phillips History of Present Illness History of Present Illness Russell Dennis is a 42 year old male with past medical history of insulin-dependent diabetes mellitus, hypertension, coronary artery disease, history of acute coronary syndrome in May 2022 and hypothyroidism. Patient was admitted at [facility] and had 5 stents placed 3 stents to artery that supplies the front of the heart on 28 May and 2 other stents to the artery that supplies to the back of the heart on 30 May. Echocardiogram showed LV function of 45% at the time. Patient was doing well since his stents until in September when while exercising in cardiac rehab he developed some chest pain and was hospitalized. His EKGs and enzymes were normal and he was set up for an outpatient stress test. Since then patient has been having exertional chest discomfort that lasts about 5 minutes or so and is relieved spontaneously. Imdur 30 mg was added to his medication regimen as well. Patient was visiting his family when around 8:30 PM yesterday he developed some chest discomfort that lasted about 5 minutes. Patient went to bed and around 10:30 PM last night he developed pressure-like chest discomfort with pain in his left elbow similar but less intense as compared to his heart attack back in May. Patient also developed some shortness of breath and took 3-4 sublingual nitroglycerin and then came to the ER for further evaluation. No nausea, vomiting or diaphoresis. By the time he came to the ER around 2:30 AM his pain was almost gone. Patient has not had any chest pain since arrival. EKG with sinus tachycardia at 106 bpm possible left atrial enlargement and septal CT of indeterminate age with nonspecific T wave inversion. Subsequent EKG with sinus rhythm. Baseline troponin T of 62 that increased to 81 and at 6 hours went up to 170. Hemoglobin A1c of 6.7. Review of Systems Const: Denies: fever(s) Eyes: Denies: change in vision ENMT: Denies: throat pain Card: Reports: chest pain Resp: Denies: dyspnea GI: Denies: abdominal pain, hematochezia or melena : Denies: flank pain, difficulty urinating, dysuria or hematuria Musc: Denies: neck pain Skin/Breast: Denies: rash Neuro: Denies: headache(s) Psych: Denies: anxiety Endo: Denies: polyuria Andres/Lymph: Denies: easy bruising All/Imm: Denies: urticaria Medications/Allergies Home Medications Medication Instructions Recorded Confirmed Last Taken Type aspirin 81 mg capsule 81 mg PO DAILY 10/26/22 10/26/22 10/25/22 08:00 History atorvastatin 80 mg tablet (Lipitor) 80 mg PO QPM 10/26/22 10/26/22 10/25/22 21:00 History bisoprolol fumarate 5 mg tablet 2.5 mg PO DAILY 10/26/22 10/26/22 10/25/22 08:00 History ezetimibe 10 mg tablet (Zetia) 10 mg PO DAILY 10/26/22 10/26/22 10/25/22 08:00 History insulin aspart 6 unit SUBCUT QPM 10/26/22 10/26/22 10/25/22 18:00 History (niacinamide)(U-100) 100 unit/mL(3 mL) subcutaneous pen insulin aspart 8 unit SUBCUT QAM 10/26/22 10/26/22 10/25/22 08:00 History (niacinamide)(U-100) 100 unit/mL(3 mL) subcutaneous pen insulin degludec 200 unit/mL (3 80 unit SUBCUT BEDTIME 10/26/22 10/26/22 10/25/22 20:00 History mL) subcutaneous pen (Tresiba FlexTouch U-200 insulin) isosorbide mononitrate 30 mg 30 mg PO QAM 10/26/22 10/26/22 10/25/22 08:00 History tablet,extended release 24 hr levothyroxine 137 mcg tablet 137 mcg PO DAILY 10/26/22 10/26/22 10/25/22 07:00 History losartan 25 mg tablet 25 mg PO DAILY 10/26/22 10/26/22 10/25/22 08:00 History nitroglycerin 0.4 mg sublingual 0.4 mg sublingual Q5M PRN chest 10/26/22 10/26/22 10/26/22 01:30 History tablet (Nitrostat) pain prasugrel 10 mg tablet (Effient) 10 mg PO DAILY 10/26/22 10/26/22 10/25/22 08:00 History Allergies Allergy/AdvReac Type Severity Reaction Status Date / Time No Known Allergies Allergy Verified 10/26/22 03:48 Current Medications Generic Name Dose Route Start Last Admin Trade Name Ebony PRN Reason Stop Dose Admin Aspirin 81 mg 10/26/22 09:00 10/26/22 08:47 Aspirin 81 Mg Ec Tablet PO 81 mg DAILY EFRAÍN Administration Atorvastatin Calcium 80 mg 10/26/22 09:00 10/26/22 08:48 Atorvastatin 40 Mg Tablet PO 80 mg DAILY EFRAÍN Administration Bisoprolol Fumarate 2.5 mg 10/26/22 09:00 10/26/22 08:51 Bisoprolol 5 Mg Tablet PO 2.5 mg DAILY EFRAÍN Administration Insulin Human Lispro 0 unit 10/26/22 08:00 10/26/22 08:42 Insulin Lispro 100 Unit/1 Ml SUBCUT Not Given [facility] Protocol Levothyroxine Sodium 137 mcg 10/26/22 09:00 10/26/22 08:47 Levothyroxine 137 Mcg Tablet PO 137 mcg DAILY EFRAÍN Administration Lisinopril 10 mg 10/26/22 09:00 10/26/22 08:48 Lisinopril 10 Mg Tablet PO 10 mg DAILY EFRAÍN Administration Prasugrel 10 mg 10/26/22 09:00 10/26/22 08:47 Prasugrel 10 Mg Tablet PO 10 mg DAILY EFRAÍN Administration PFSH Acute PFSH: Medical History (Updated 10/26/22 @ 09:50 by Radha Milton MD) Coronary artery disease Diabetes Dyslipidemia Hypertension Surgical History Coronary angioplasty status Family History Other Diabetes Social History Smoking and tobacco status: former smoker Alcohol intake: former Substance/Drug Use: never Housing: House Vitals/I&O/Wt Last Vital Signs Temp 98.2 F 10/26/22 07:39 Pulse 71 10/26/22 08:50 Resp 16 10/26/22 08:50 BP 133/72 10/26/22 07:39 Pulse Ox 97 10/26/22 08:50 O2 Del Method 10/26/22 07:39 Weight last 48 hrs Weight 289 lb 14.4 oz Weight 280 lb Physical Exam Narrative: GENERAL: Averagely built and averagely nourished in no acute distress HEENT: Extraocular movement intact. No pallor or icterus. NECK: central trachea, No JVD. No carotid bruit. CARDIOVASCULAR SYSTEM: S1-S2 regular. No S3 or S4 present. No murmur rubs or gallops. RESPIRATORY SYSTEM: Chest clear to auscultation. No wheezes rhonchi or rubs heard. No use of accessory muscles. ABDOMEN: Soft, nontender and nondistended. Normal bowel sounds present. EXTREMITIES: No cyanosis or edema] No signs of chronic venous insufficiency. PREPPER: Patient is alert oriented ?3. No focal neurological deficits. SKIN: Normal turgor and temperature. PSYCH: Normal insight and judgment. No suicidal or homicidal ideations. Data 10/26/22 02:09 10/26/22 02:09 Other Labs: Baseline troponin T 62-->81-->170. NT Pro BNP-180 A&P Assessment and plan (1) Non-STEMI (non-ST elevated myocardial infarction): Continue ASA, effient, statin, beta isra and imdur -on therapeutic lovenox and NTG PRN Risks and benefits were discussed with the patients. Alternate management options were discussed with the patient as well. Possible complications including risk of heart attack stroke and , coronary perforation, arrhythmia, cardiac tamponade in urgent CABG were discussed with the patient as well. - Plan is to proceed for the procedure tomorrow morning. (2) Coronary artery disease: s/p 5 stents in 05/2022 -records awaited (3) Hypertension: BP well controlled (4) Dyslipidemia: f/u on lipid panel (5) Diabetes: as per primary team Plan Hypothyroidism Consult Attestations Time Spent in Patient Care: Greater than 35 minutes Coding Level of Care Code Acute Straw Hat Washer Operator for Chg Fwd Diagnoses Non-STEMI (non-ST elevated myocardial infarction) I21.4 Coronary artery disease I25.10 Hypertension I10 Dyslipidemia E78.5 Diabetes E11.9
[2022-10-26 11:45] LABS: Glucose Point of Care 214 mg/dL (70-110)
[2022-10-26] MEDS: insulin lispro 100 unit/1 mL SUBCUT ×2 (13:18→17:58)
[2022-10-26 17:40] LABS: Glucose Point of Care 183 mg/dL (70-110)
[2022-10-26] MEDS: enoxaparin 100 mg/mL Syringe 120 MG SUBCUT (17:57)
[2022-10-26] MEDS: insulin glargine 100 units/1 mL 64 UNIT SUBCUT (20:33)
[2022-10-26 20:40] LABS: Glucose Point of Care 228 mg/dL (70-110)
--- NOTE | 2022-10-26 20:48 | P.PN_ITS ---
Subjective Subjective: He is napping. Wakes up easily. Denies chest pain or pressure. Has spoken with cardiology with plans for further evaluation with coronary angiography in the morning. Vitals/I&O/Wt Last Vital Signs Temp 98.1 F 10/26/22 16:00 Pulse 72 10/26/22 16:00 Resp 12 10/26/22 16:00 BP 139/77 10/26/22 16:00 Pulse Ox 96 10/26/22 16:00 O2 Del Method 10/26/22 16:00 10/26/22 10/26/22 10/26/22 06:59 14:59 22:59 Intake Total 236 / 236 Balance 236 / 236 Weight last 48 hrs Weight 131.496 kg Weight 127.006 kg Physical Exam Const: COMMON NORMALS: patient oriented x3 and alert GENERAL APPEARANCE: cooperative ORIENTATION/CONSCIOUSNESS: Yes awake HENMT: COMMON NORMALS: oropharynx normal Neck/C-Spine: COMMON NORMALS: no JVD Resp: COMMON NORMALS: normal respiratory effort and clear to auscultation bilaterally AUSCULTATION: clear to auscultation bilaterally Cardio: COMMON NORMALS: no JVD, regular rhythm, S1 normal heart sound present, S2 normal heart sound present and No murmurs present (Cardio) RHYTHM: regular rhythm HEART SOUNDS: S1 normal heart sound present and S2 normal heart sound present GI: COMMON NORMALS: Normal to inspection, nondistended, normoactive bowel sounds present, Soft to palpation and non-tender PALPATION: Yes Soft to palpation Extremity: COMMON NORMALS: no joint enlargement and no pedal edema Neuro: COMMON NORMALS: patient oriented x3 and moves all extremities SENSORIUM/ORIENTATION: Yes alert Skin: COMMON NORMALS: no rashes or lesions noted GENERAL SKIN EXAM: no rashes or lesions noted Data 10/26/22 02:09 10/26/22 02:09 A&P Assessment and plan (1) Non-STEMI (non-ST elevated myocardial infarction): Appreciate cardiology assessment. Further assessment coronary angiography in the morning. History of prior stents. Request records from [facility]. (2) Chest pain: (3) Coronary artery disease: (4) Diabetes: SSI (5) Hypertension: Blood pressure doing better. (6) Dyslipidemia: Continue statin. Attestations Medical Necessity Statement*: Continue hospitalization for assessment and management of NSTEMI. Coding Level of Care Code Acute Supervisor Residential for Chg Fwd Exam Comprehensive Diagnoses Non-STEMI (non-ST elevated myocardial infarction) I21.4 Chest pain R07.9 Coronary artery disease I25.10 Diabetes E11.9 Hypertension I10 Dyslipidemia E78.5
[2022-10-27] VITALS (12 sets, daily range): BP systolic 105–129; BP diastolic 52–69; PULSE 55–77; RESP 7–18; TEMP 36.4–36.6; O2SAT 94–98
[2022-10-27 03:59] LABS: Basophils % 0.6 %; Eosinophils # 0.2 10^3/uL (0.0-0.8); Eosinophils % 4.2 %; Hematocrit 44.3 % (42.0-52.0); Hemoglobin 14.4 g/dL (11.7-16.6); Lymphocytes # 2.3 10^3/uL (0.8-4.8); Lymphocytes % 49.4 %; Mean Corpuscular HGB Conc 32.5 g/dL (30.0-36.0); Mean Corpuscular Hemoglobin 29.8 pg (28.0-34.0); Mean Corpuscular Volume 91.7 fl (80-94); Mean Platelet Volume 10.2 fL (7.4-10.4); Monocytes # 0.5 10^3/uL (0.2-0.9); Neutrophils # 1.63 10^3/uL (1.8-7.7); Neutrophils % 34.4 %; Nucleated Red Blood Cells % 0 %; Platelet Count 179 10^3/cmm (130-400); Red Blood Count 4.83 10^6/uL (4.1-5.3); Red Cell Distribution Width 13.2 % (12.1-15.1); White Blood Count 4.7 10^3/uL (4.0-10.0)
[2022-10-27 04:09] LABS: INR 1.14 (0.8-1.2)
[2022-10-27 04:18] LABS: Anion Gap 13.2 (5-19); Blood Urea Nitrogen 12 mg/dL (6-20); Calcium 8.8 mg/dL (8.5-10.5); Carbon Dioxide 24 mmol/L (22-29); Chloride 107 mmol/L (98-107); Glomerular Filtration Rate 123.7 mL/min (90-130); Glucose 193 mg/dL (65-115); Magnesium 1.8 mg/dL (1.7-2.3); Osmolality Calculated 295 mOsm/kg (285-295); Potassium 4.2 mmol/L (3.5-5.1); Sodium 140 mmol/L (136-145)
[2022-10-27 04:24] LABS: Cholesterol 81 mg/dL (0-200); HDL Cholesterol 27 mg/dL (60-100); LDL Cholesterol Calculated 35 mg/dL (50-129); LDL Cholesterol Direct 33 mg/dL (0-100); Triglycerides 93 mg/dL (0-150)
[2022-10-27] MEDS: isosorbide mononitrate ER 30 mg Tablet PO (05:02)
--- NOTE | 2022-10-27 05:03 | PC.NURSE ---
Lovenox morning dose not give per Dr Milton prior to left heart cath.
[2022-10-27 06:37] LABS: Glucose Point of Care 69 mg/dL (70-110)
[2022-10-27] MEDS: levothyroxine 137 mcg Tablet PO (07:34)
[2022-10-27] MEDS: lisinopril 10 mg Tablet 5 MG PO (07:34)
[2022-10-27] MEDS: diphenhydrAMINE 50 mg Capsule PO (07:34)
[2022-10-27] MEDS: atorvastatin 40 mg Tablet 80 MG PO (07:34)
[2022-10-27] MEDS: sodium chloride 0.9% 1,000 ML 50 ML IV (07:35)
[2022-10-27] MEDS: aspirin 81 mg EC Tablet PO (08:13)
[2022-10-27] MEDS: prasugrel 10 MG Tablet PO (08:13)
--- NOTE | 2022-10-27 09:01 | W.PM.OPSUD ---
Surgery/Procedure H&P Update DATE OF PROCEDURE: October 27, 2022 DATE H&P PERFORMED: 10/26/22 H&P UPDATE INFORMATION: I have reviewed H&P completed within last 30 days, I have examined patient prior to procedure and No changes to prior documentation PREOP DIAGNOSIS: NSTEMI, h/o recent stents PRIMARY INDICATION FOR PROCEDURE: NSTEMI, h/o recent stents PLANNED PROCEDURE: Left hert cathetarization PATIENT REASSESSED PRIOR TO SEDATION, WITH NO CHANGE NOTED: Yes PHYSICAL EXAM: alert, oriented x 3, clear to auscultation bilaterally and regular rate & rhythm AIRWAY EVAL/ANESTHESIA PLAN: normal airway, ASA III, Monitored Anesthesia, Local Anesthesia, Risks, benefits & alternatives of sedation and/or procedure discussed and Patient agrees to continue as planned
--- NOTE | 2022-10-27 10:44 | PC.CHAP ---
Pastoral Care Encounter/Spiritual Assessment Type of Contact [] Declined section gang worker visit [] Patient/Family/Request visit [] Outpatient visit [] Follow-up visit [] Physician referral [] Code/Alert [x] Routine visit [] Staff referral [] Actively dying [] Patient sleeping [] Family support [] [x] Out of room [] Palliative care [] [] Receiving care in room [] Pre-surgical visit [] Trauma [] Long length of stay [] ICU visit [] Other: Relational/Emotional Strength [] Patient feels connected with others/family/visitors/staff [] Distress [] Loneliness/isolation [] Abandonment Spirituality of Patient [] Person of Isaura [] Attends Mormon of their Isaura [] Believes in Prayer [] Reads Bible or Jehovah'S Witness materials [] There are Spiritual issues to be addressed Electrolysis Engineer Interventions [] Prayer [] Active listening [] Non-anxious presence [] Spiritual/emotional support [] Crisis/trauma care [] Spiritual counseling [] Bereavement support [] Provided bereavement packet [] Provided Bible/devotional materials [] Provided toy/stuffed animal, coloring book to patient or family member [] Provided Communion [] Anointing/Rowan [] Salvation [] Completed spiritual assessment [] Other: Impact on Illness or Injury [] Angry [] Fearful [] Anxious [] Often cries [] Exhaustion [] Unable to work [] Unable to attend zoroastrianism [] Unable to walk/stand [] Unable to read [] Unable to drive [] Unable to eat/drink [] Unable to sleep [] Unable to be with family [] Patient intubated [] Other: Summary Time spent with patient
--- NOTE | 2022-10-27 11:51 | PM.PN ---
Subjective Subjective: s/p LHC this morning Medications: Reviewed: Yes Vitals/I&O/Wt Last Vital Signs Temp 97.6 F 10/27/22 07:47 Pulse 60 10/27/22 11:30 Resp 17 10/27/22 08:00 BP 105/52 10/27/22 07:47 Pulse Ox 97 10/27/22 08:00 O2 Del Method 10/27/22 07:47 10/26/22 10/27/22 10/27/22 22:59 06:59 14:59 Intake Total 236 / 236 Balance 236 / 236 Weight last 48 hrs Weight 289 lb 14.4 oz Weight 280 lb Physical Exam Narrative: GENERAL: Averagely built and averagely nourished in no acute distress HEENT: Extraocular movement intact. No pallor or icterus. NECK: central trachea, No JVD. No carotid bruit. CARDIOVASCULAR SYSTEM: S1-S2 regular. No S3 or S4 present. No murmur rubs or gallops. RESPIRATORY SYSTEM: Chest clear to auscultation. No wheezes rhonchi or rubs heard. No use of accessory muscles. ABDOMEN: Soft, nontender and nondistended. Normal bowel sounds present. EXTREMITIES: No cyanosis or edema No signs of chronic venous insufficiency. BUSINESS MANAGEMENT ASSOCIATE: Patient is alert oriented ?3. No focal neurological deficits. SKIN: Normal turgor and temperature. PSYCH: Normal insight and judgment. No suicidal or homicidal ideations. Const: COMMON NORMALS: alert Resp: COMMON NORMALS: clear to auscultation bilaterally AUSCULTATION: clear to auscultation bilaterally Neuro: SENSORIUM/ORIENTATION: Yes alert Data 10/27/22 02:46 10/27/22 02:46 A&P Assessment and plan (1) Non-STEMI (non-ST elevated myocardial infarction): Continue ASA, effient, statin, beta isra and imdur -on therapeutic lovenox and NTG PRN Risks and benefits were discussed with the patients. Alternate management options were discussed with the patient as well. Possible complications including risk of heart attack stroke and , coronary perforation, arrhythmia, cardiac tamponade in urgent CABG were discussed with the patient as well. - s/p LHC. It showed LAD and LCx arising from separate ostia. Ostial LAD 99% stenosis s/p balloon angioplasty and AYANNA placement and balloon angioplasty of ISR of mid LAD lesion. CYLINDER PRESS OPERATOR pf px LAD and LCX with patent stents and mild disease. -continue ASA, effient, statin and beta isra (2) Coronary artery disease: s/p 3 stents to px to mid LAD and 2 stents to LCx and balloon angioplasty of OM2 in 05/2022 -records received and reviewed (3) Hypertension: BP well controlled (4) Dyslipidemia: (5) Diabetes: as per primary team Plan Hypothyroidism Attestations Medical Necessity Statement*: needs hospital stay post NSTEMI Time Spent in Patient Care: 16 - 35 minutes Coding Level of Care Code Acute Poker Room Manager for Chg Fwd Exam Expanded Problem Focused Diagnoses Non-STEMI (non-ST elevated myocardial infarction) I21.4 Coronary artery disease I25.10 Hypertension I10 Dyslipidemia E78.5 Diabetes E11.9
[2022-10-27 12:20] LABS: Glucose Point of Care 71 mg/dL (70-110)
[2022-10-27] MEDS: sodium chloride 0.9% 1,000 ML 100 ML IV (12:29)
[2022-10-27] MEDS: ezetimibe 10 mg Tablet PO (16:10)
[2022-10-27 17:17] LABS: Glucose Point of Care 213 mg/dL (70-110)
--- NOTE | 2022-10-27 17:19 | PM.PN ---
Subjective Subjective: Hospital course, labs appreciated. Examination sitting comfortably in bed post PCI. Denies any chest pain. Has remained hemodynamically stable and afebrile on room air. Vitals/I&O/Wt Last Vital Signs Temp 97.6 F 10/27/22 07:47 Pulse 64 10/27/22 14:00 Resp 18 10/27/22 11:16 BP 117/64 10/27/22 11:16 Pulse Ox 96 10/27/22 11:16 O2 Del Method 10/27/22 07:47 Weight last 48 hrs Weight 131.496 kg Weight 127.006 kg Physical Exam Const: COMMON NORMALS: patient oriented x3 and alert GENERAL APPEARANCE: cooperative ORIENTATION/CONSCIOUSNESS: Yes awake HENMT: COMMON NORMALS: oropharynx normal Neck/C-Spine: COMMON NORMALS: no JVD Resp: COMMON NORMALS: normal respiratory effort and clear to auscultation bilaterally AUSCULTATION: clear to auscultation bilaterally Cardio: COMMON NORMALS: no JVD, regular rhythm, S1 normal heart sound present, S2 normal heart sound present and No murmurs present (Cardio) RHYTHM: regular rhythm HEART SOUNDS: S1 normal heart sound present and S2 normal heart sound present GI: COMMON NORMALS: Normal to inspection, nondistended, normoactive bowel sounds present, Soft to palpation and non-tender PALPATION: Yes Soft to palpation Extremity: COMMON NORMALS: no joint enlargement and no pedal edema Neuro: COMMON NORMALS: patient oriented x3 and moves all extremities SENSORIUM/ORIENTATION: Yes alert Skin: COMMON NORMALS: no rashes or lesions noted GENERAL SKIN EXAM: no rashes or lesions noted Data 10/27/22 02:46 10/27/22 02:46 A&P Assessment and plan (1) Non-STEMI (non-ST elevated myocardial infarction): Appreciate cardiology recommendations. Post PCI. Appreciate A1c, lipid panel. Continue with aspirin, statin, prasugrel, bisoprolol. Echocardiogram shows an EF of 65%, normal diastolic function without regional wall motion of normality. (2) Chest pain: (3) Coronary artery disease: (4) Diabetes: Appreciate A1c. Continue home dose of insulin sliding scale and Lantus. (5) Hypertension: Goal blood pressure less than 140/90 MNG with mean over 65. Continue with home dose of Imdur, losartan, bisoprolol 5 mg daily. (6) Dyslipidemia: Continue statin. 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
[2022-10-27] MEDS: insulin lispro 100 unit/1 mL SUBCUT (17:34)
[2022-10-27 20:44] LABS: Glucose Point of Care 199 mg/dL (70-110)
[2022-10-27 21:06] LABS: Iron 39 ug/dL (59-158); Percent Saturation 19.6 % (20-50); Total Iron Binding Capacity 198 mcg/dl; Unsaturated Iron Binding 159 ug/dL (112-347)
[2022-10-27] MEDS: insulin glargine 100 units/1 mL 64 UNIT SUBCUT (22:06)
[2022-10-28 03:08] LABS: Basophils % 0.3 %; Eosinophils # 0.1 10^3/uL (0.0-0.8); Eosinophils % 2.2 %; Hematocrit 43.3 % (42.0-52.0); Hemoglobin 14.6 g/dL (11.7-16.6); Lymphocytes # 2.3 10^3/uL (0.8-4.8); Lymphocytes % 35.3 %; Mean Corpuscular HGB Conc 33.7 g/dL (30.0-36.0); Mean Corpuscular Hemoglobin 30.4 pg (28.0-34.0); Mean Platelet Volume 9.8 fL (7.4-10.4); Monocytes # 0.5 10^3/uL (0.2-0.9); Monocytes % 8.2 %; Neutrophils # 3.43 10^3/uL (1.8-7.7); Neutrophils % 53.7 %; Nucleated Red Blood Cells % 0 %; Platelet Count 180 10^3/cmm (130-400); Red Blood Count 4.81 10^6/uL (4.1-5.3); Red Cell Distribution Width 12.9 % (12.1-15.1); White Blood Count 6.4 10^3/uL (4.0-10.0)
[2022-10-28 03:32] VITALS: BP 138/66; PULSE 68; RESP 14; TEMP 36.6; O2SAT 96
[2022-10-28 03:37] LABS: Alanine Aminotransferase 48 U/L (0-41); Albumin Level 3.6 g/dL (3.5-5.2); Alkaline Phosphatase 56 U/L (40-130); Anion Gap 11.9 (5-19); Aspartate Amino Transferase 20 U/L (0-40); Blood Urea Nitrogen 12 mg/dL (6-20); Calcium 8.4 mg/dL (8.5-10.5); Carbon Dioxide 24 mmol/L (22-29); Chloride 104 mmol/L (98-107); Globulin 2.5 g/dL (1.3-4.6); Glucose 131 mg/dL (65-115); Osmolality Calculated 284 mOsm/kg (285-295); Potassium 3.9 mmol/L (3.5-5.1); Sodium 136 mmol/L (136-145); Total Bilirubin 0.5 mg/dL (0.15-1.2); Total Protein 6.1 g/dL (6.6-8.7)
[2022-10-28 06:00] VITALS: PULSE 69
[2022-10-28] MEDS: isosorbide mononitrate ER 30 mg Tablet PO (06:04)
[2022-10-28 06:18] LABS: Glucose Point of Care 83 mg/dL (70-110)
[2022-10-28 07:20] VITALS: BP 143/68; PULSE 69; RESP 12; TEMP 37.1; O2SAT 96
--- NOTE | 2022-10-28 08:55 | P.DS_ITS ---
Discharge Providers Date of Admission: 10/26/22 04:36 Date of Discharge: October 28, 2022 Attending Provider at Admission: Stephen Dodge MD Attending Provider at Discharge: Milton Joseph MD Consults: Cardiology: Dr. Milton Diagnoses at Discharge Discharge Diagnosis (1) Non-STEMI (non-ST elevated myocardial infarction): Status: Acute (2) Chest pain: Status: Acute (3) Coronary artery disease: Status: Acute (4) Diabetes: Status: Acute (5) Hypertension: Status: Acute (6) Dyslipidemia: Status: Acute Reason for Visit Reason for Visit: CP, beatriz B/P Brief History: History as per HPI: Russell Dennis is a 42 year old male who has history of coronary disease, recent stents placed and May this year in [place], he is visiting his family for [place], around 10:30 PM he start experiencing chest pain.? Patient is stating that this time around 10:30 PM he was at rest when he started experiencing pressure-like sensation which was radiating towards his left arm, he is endorsing similar pain when the stent was placed this year, at that time his blood pressure was high systolic pressure 150s he tried to calm himself down, however his chest pain was recurrent, he took nitroglycerin which eased off his pain and blood pressure improved slightly, around 1 AM he woke up with chest pain at that time his blood pressure was high again it took couple of doses of nitroglycerin, he did not call ambulance, total he took 4 tablets of nitroglycerin that reduce his blood pressure to normal it took the edge off his pain.? He denies chest nausea, vomiting, diaphoresis In the ER he has been diagnosed with NSTEMI, he takes Effient and aspirin, loading dose of aspirin has been given along therapeutic Lovenox EKG showing T wave inversion anterior leads no signs of infarction Patient is chest pain-free at the time of evaluation D-dimer unremarkable Delta troponin 18 Hospital Course Hospital Course Patient was admitted to hospital further evaluation and management. On admission there was concern for non-ST elevation MO. Cardiology was consulted. He eventually underwent cardiac angiogram which showed LAD and LCx arising from separate ostia. He underwent PCI with ostial LAD 99% stenosis post balloon angioplasty and AYANNA placement balloon angioplasty of ISR of mid LAD lesion. 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 Post angiogram stay was unremarkable. He is been discharged in hemodynamically stable condition. His dose of losartan and bisoprolol has been increased. He is been discharged hemodynamically stable condition advised to follow-up with his primary billing coordinator within next 1-2 week. Patient wants to travel back to his home state today. Physical Exam Const: COMMON NORMALS: patient oriented x3 and alert GENERAL APPEARANCE: cooperative ORIENTATION/CONSCIOUSNESS: Yes awake HENMT: COMMON NORMALS: oropharynx normal Neck/C-Spine: COMMON NORMALS: no JVD Resp: COMMON NORMALS: normal respiratory effort and clear to auscultation bilaterally AUSCULTATION: clear to auscultation bilaterally Cardio: COMMON NORMALS: no JVD, regular rhythm, S1 normal heart sound present, S2 normal heart sound present and No murmurs present (Cardio) RHYTHM: regular rhythm HEART SOUNDS: S1 normal heart sound present and S2 normal heart sound present GI: COMMON NORMALS: Normal to inspection, nondistended, normoactive bowel sounds present, Soft to palpation and non-tender PALPATION: Yes Soft to palpation Extremity: COMMON NORMALS: no joint enlargement and no pedal edema Neuro: COMMON NORMALS: patient oriented x3 and moves all extremities SENSORIUM/ORIENTATION: Yes alert Skin: COMMON NORMALS: no rashes or lesions noted GENERAL SKIN EXAM: no rashes or lesions noted Discharge Data Studies Completed and Pending Completed Studies During Hospitalization Category Date Time Status XR chest 1V portable [id number] Stat Exams 10/26/22 02:23 Completed CV. echo complete* [id number] Routine Ultrasound 10/26/22 06:04 Completed Pending at discharge Category Date Time Status PBX MECHANIC request for service Routine Exams 10/25/22 00:00 Taken Free T4 Free Thyroxine Routine Lab 10/28/22 08:55 Ordered T3 Free Routine Lab 10/28/22 08:55 Ordered Radiology Impressions Chest X-Ray 10/26/22 02:23 IMPRESSION: No acute cardiopulmonary findings. Echocardiogram ?CONCLUSIONS ?1. Normal left ventricular size, systolic function and mildly ?increased wall thickness, with no regional wall motion ?abnormalities. Left ventricular ejection fraction is estimated ?at 65 %. Normal diastolic function. ?2. Normal right ventricular size and systolic function. ?3. No significant valvular abnormality. ?4. No prior similar studies to compare. ?Radha Milton MD ?(Electronically Signed) ?Final Date:? ? ? 26 October 2022 ? 11:31 S Laboratory Results WBC 6.4 10^3/uL (4.0-10.0) 10/28/22 02:45 RBC 4.81 10^6/uL (4.1-5.3) 10/28/22 02:45 Hgb 14.6 g/dL (11.7-16.6) 10/28/22 02:45 Hct 43.3 % (42.0-52.0) 10/28/22 02:45 MCV 90.0 fl (80-94) 10/28/22 02:45 MCH 30.4 pg (28.0-34.0) 10/28/22 02:45 MCHC 33.7 g/dL (30.0-36.0) 10/28/22 02:45 RDW 12.9 % (12.1-15.1) 10/28/22 02:45 Plt Count 180 10^3/cmm (130-400) 10/28/22 02:45 MPV 9.8 fL (7.4-10.4) 10/28/22 02:45 Neut % (Auto) 53.7 % 10/28/22 02:45 Lymph % (Auto) 35.3 % 10/28/22 02:45 [place] % (Auto) 8.2 % 10/28/22 02:45 Eos % (Auto) 2.2 % 10/28/22 02:45 Baso % (Auto) 0.3 % 10/28/22 02:45 Neut # (Auto) 3.43 10^3/uL (1.8-7.7) 10/28/22 02:45 Lymph # (Auto) 2.3 10^3/uL (0.8-4.8) 10/28/22 02:45 [place]ard # (Auto) 0.5 10^3/uL (0.2-0.9) 10/28/22 02:45 Eos # (Auto) 0.1 10^3/uL (0.0-0.8) 10/28/22 02:45 Baso # (Auto) 0.0 10^3/uL (0.0-0.1) 10/28/22 02:45 Nucleated RBC % (auto) 0 % 10/28/22 02:45 Nucleated RBCs # 0.0 /100WBC 10/28/22 02:45 PT 15.00 SECONDS (12.1-14.9) H 10/27/22 02:46 INR 1.14 (0.8-1.2) 10/27/22 02:46 D-Dimer 0.34 ug/mIFEU (0-0.59) 10/26/22 02:09 Sodium 136 mmol/L (136-145) 10/28/22 02:45 Potassium 3.9 mmol/L (3.5-5.1) 10/28/22 02:45 Chloride 104 mmol/L (98-107) 10/28/22 02:45 Carbon Dioxide 24 mmol/L (22-29) 10/28/22 02:45 Anion Gap 11.9 (5-19) 10/28/22 02:45 BUN 12 mg/dL (6-20) 10/28/22 02:45 Creatinine 0.8 mg/dL (0.7-1.2) 10/28/22 02:45 GFR Calculation 106.0 mL/min (90-130) 10/28/22 02:45 Glucose 131 mg/dL (65-115) H 10/28/22 02:45 POC Glucose 83 mg/dL (70-110) 10/28/22 06:14 Estimat Average Glucose 146 10/26/22 06:12 Hemoglobin A1c 6.7 % (4.0-6.0) H 10/26/22 06:12 Calculated Osmolality 284 mOsm/kg (285-295) L 10/28/22 02:45 Calcium 8.4 mg/dL (8.5-10.5) L 10/28/22 02:45 Magnesium 1.8 mg/dL (1.7-2.3) 10/27/22 02:46 Iron 39 ug/dL (59-158) L 10/27/22 07:56 TIBC 198 mcg/dl 10/27/22 07:56 % Saturation 19.6 % (20-50) L 10/27/22 07:56 Unsat Iron Binding 159 ug/dL (112-347) 10/27/22 07:56 Total Bilirubin 0.5 mg/dL (0.15-1.2) 10/28/22 02:45 AST 20 U/L (0-40) 10/28/22 02:45 ALT 48 U/L (0-41) H 10/28/22 02:45 Alkaline Phosphatase 56 U/L (40-130) 10/28/22 02:45 Troponin T Baseline 62 ng/L (0-15) H 10/26/22 02:09 Troponin T 120 Minute 80.76 ng/L (0-15) H 10/26/22 03:33 Delta Troponin T 18.76 ABS# (0-10) H* 10/26/22 03:33 Troponin T Hi Sens 6Hr 169.8 ng/L (0-15) H 10/26/22 07:56 Troponin T Hi Sens 6Hr Delta 107.8 ng/L (0-12) H* 10/26/22 07:56 NT-Pro-B Natriuret Pep 180 pg/mL (0-125) H 10/26/22 02:09 Total Protein 6.1 g/dL (6.6-8.7) L 10/28/22 02:45 Albumin 3.6 g/dL (3.5-5.2) 10/28/22 02:45 Globulin 2.5 g/dL (1.3-4.6) 10/28/22 02:45 Triglycerides 93 mg/dL (0-150) 10/27/22 02:46 Cholesterol 81 mg/dL (0-200) 10/27/22 02:46 LDL Cholesterol Direct 33 mg/dL (0-100) 10/27/22 02:46 LDL Cholesterol, Calc 35 mg/dL (50-129) L 10/27/22 02:46 HDL Cholesterol 27 mg/dL (60-100) L 10/27/22 02:46 LDL/HDL Ratio 1.30 RATIO (0.00-3.22) 10/27/22 02:46 Cholesterol/HDL Ratio 3.00 mg/dL (1.0-5.00) 10/27/22 02:46 Lipase 35 U/L (13-60) 10/26/22 02:09 Vitamin B12 410 pg/mL (232-1245) 10/26/22 06:12 TSH 4.80 uIU/mL (0.27-4.20) H 10/27/22 07:56 Procedures Performed Cardiac angiogram: 10/27: Complete report not currently available. It showed LAD and LCx arising from separate ostia. Ostial LAD 99% stenosis s/p balloon angioplasty and AYANNA placement and balloon angioplasty of ISR of mid LAD lesion. 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 Vitals Last Vital Signs Temp 98.8 F 10/28/22 07:20 Pulse 69 10/28/22 07:20 Resp 12 10/28/22 07:20 BP 143/68 10/28/22 07:20 Pulse Ox 96 10/28/22 07:20 O2 Del Method 10/28/22 07:20 Discharge Plan Discharge Patient Disposition: Home Condition: Stable Prescriptions: Continued levothyroxine 137 mcg Tablet 137 mcg PO DAILY Lipitor 80 mg Tablet 80 mg PO QPM isosorbide mononitrate 30 mg Tablet Extended Release 24 Hr 30 mg PO QAM Nitrostat 0.4 mg Tablet, Sublingual 0.4 mg SUBLINGUAL Q5M PRN (Reason: chest pain) Rx Instructions: do not exceed 3 doses per episode Zetia 10 mg Tablet 10 mg PO DAILY Effient 10 mg Tablet 10 mg PO DAILY Tresiba FlexTouch U-200 200 unit/mL (3 mL) Insulin Pen 80 unit SUBCUT BEDTIME insulin aspart (niacinamide) 100 unit/mL (3 mL) Insulin Pen 8 unit SUBCUT QAM insulin aspart (niacinamide) 100 unit/mL (3 mL) Insulin Pen 6 unit SUBCUT QPM aspirin 81 mg Capsule 81 mg PO DAILY Changed bisoprolol fumarate 5 mg Tablet 5 mg PO DAILY Qty: 30 0RF losartan 25 mg Tablet 50 mg PO DAILY Qty: 60 0RF Discharge Orders: Discharge Order (Routine); Ordered 10/28/22 Ordered By: Milton Joseph Referrals: CARDIOLOGY [Provider Group] - 4-7 days ( Please call for an follow-up appointment with your Molecular Modeler with in 4 to 7 days. ) Discharge Diet: Cardiac and Diabetic Patient Instructions: Coronary Artery Disease (DC), Coronary Angioplasty (DC), Hypertension (DC), Opioid Safety, Post Angiogram Home Care Instructions Activity Restrictions/Additional Instructions: Do not lift anything more than 5 lbs for 1 week. Keep the site dry and clean Take medications as prescribed and follow up as scheduled. No swimming or tub bathing. May shower. Blood pressure and heart rate log x 2 weeks Discharge Attestations Time Spent in Discharge Care*: greater than 30 min Specific Discharge Activities: educating patient, discussing with pcp/other providers, discussing with casework specialist/social workers/dc planners, documenting/other paperwork and evaluating patient/reviewing data Status at Discharge: Cognitive status at discharge: cognitively intact , Behavioral status at discharge: cooperative , Functional status at discharge: independent ambulation , Overall status at discharge: patient is back to baseline Quality Metrics Clinical Quality Measures [ Acute Myocardial Infaction { Clinical Trial Participant: No; Contraindication to aspirin: None; Aspirin prescribed; Contraindication to statin: None; Statin prescribed; Contraindication to PCI: None; PCI performed; Contraindication to Fibrinolytics: None; fibrinolytics given}] Coding Level of Care Code Acute Chg FW DC note Exam Comprehensive Diagnoses Non-STEMI (non-ST elevated myocardial infarction) I21.4 Chest pain R07.9 Coronary artery disease I25.10 Diabetes E11.9 Hypertension I10 Dyslipidemia E78.5
[2022-10-28 08:56] VITALS: PULSE 76; RESP 16; O2SAT 95
[2022-10-28] MEDS: atorvastatin 40 mg Tablet 80 MG PO (09:36)
[2022-10-28] MEDS: prasugrel 10 MG Tablet PO (09:36)
[2022-10-28] MEDS: aspirin 81 mg EC Tablet PO (09:36)
[2022-10-28] MEDS: ezetimibe 10 mg Tablet PO (09:36)
[2022-10-28] MEDS: lisinopril 10 mg Tablet 5 MG PO (09:36)
[2022-10-28] MEDS: levothyroxine 137 mcg Tablet PO (09:36)
--- NOTE | 2022-10-28 09:54 | PM.PN ---
Subjective Subjective: s/p LHC yesterday morning Medications: Reviewed: Yes Vitals/I&O/Wt Last Vital Signs Temp 98.8 F 10/28/22 07:20 Pulse 76 10/28/22 08:56 Resp 16 10/28/22 08:56 BP 143/68 10/28/22 07:20 Pulse Ox 95 10/28/22 08:56 O2 Del Method 10/28/22 07:20 10/27/22 10/28/22 10/28/22 22:59 06:59 14:59 Intake Total 387 / 387 200 / 587 1000 / 1000 Output Total 850 / 850 300 / 1150 450 / 450 Balance -463 / -463 -100 / -563 550 / 550 Physical Exam Narrative: GENERAL: Averagely built and averagely nourished in no acute distress HEENT: Extraocular movement intact. No pallor or icterus. NECK: central trachea, No JVD. No carotid bruit. CARDIOVASCULAR SYSTEM: S1-S2 regular. No S3 or S4 present. No murmur rubs or gallops. RESPIRATORY SYSTEM: Chest clear to auscultation. No wheezes rhonchi or rubs heard. No use of accessory muscles. ABDOMEN: Soft, nontender and nondistended. Normal bowel sounds present. EXTREMITIES: No cyanosis or edema No signs of chronic venous insufficiency. R wrist with no bruising or hematoma. Right groin with no bruising or hematoma INNER LAYER SCRUBBER TENDER: Patient is alert oriented ?3. No focal neurological deficits. SKIN: Normal turgor and temperature. PSYCH: Normal insight and judgment. No suicidal or homicidal ideations. Const: COMMON NORMALS: alert Resp: COMMON NORMALS: clear to auscultation bilaterally AUSCULTATION: clear to auscultation bilaterally Neuro: SENSORIUM/ORIENTATION: Yes alert Data 10/28/22 02:45 10/28/22 02:45 A&P Assessment and plan (1) Non-STEMI (non-ST elevated myocardial infarction): Continue ASA, effient, statin, beta isra and imdur - s/p LHC. It showed LAD and LCx arising from separate ostia. Ostial LAD 99% stenosis s/p balloon angioplasty and AYANNA placement and balloon angioplasty of ISR of mid LAD lesion. 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
[2022-10-28 10:16] LABS: Free T4 Free Thyroxine 1.04 ng/dL (0.82-1.77)
[2022-10-28 10:46] LABS: T3 Free 2.5 PG/ML (2.0-4.4)
--- NOTE | 2022-10-28 10:51 | PC.NURSE ---
Patient discharged ambulatory with spouse. GCS 15. Patient and given education on to seek immediate medical attention at the [facility] if bleeding or hematoma occurs. [place] is [place] today. Patient states he will make his own appointment for cardiology at his hand [facility] in [place].
== END 2022-10-28 10:53 | disposition home or self-care (01) ==
LOC: ER 04:30 → CSU 04:42
PROVIDERS: Internal Medicine; Internal Medicine Cardiovascular Disease; Admitting Provider Internal Medicine; Emergency Provider Emergency Medicine; Visit Provider Student in an Organized Health Care Education/Training Program
DX: I21.4 Non-ST elevation (NSTEMI) myocardial infarction (principal); R07.9 Chest pain, unspecified; I25.10 Atherosclerotic heart disease of native coronary artery without angina pectoris; E11.9 Type 2 diabetes mellitus without complications; I10 Essential (primary) hypertension; E78.5 Hyperlipidemia, unspecified; Z95.5 Presence of coronary angioplasty implant and graft; E03.9 Hypothyroidism, unspecified; Z79.82 Long term (current) use of aspirin; Z79.4 Long term (current) use of insulin; Z87.891 Personal history of nicotine dependence
CPT/HCPCS: 36415; 36416; 71045; 80048; 80053; 80061; 82607; 82962; 83036; 83540; 83550; 83690; 83721; 83735; 83880; 84439; 84443; 84481; 84484; 85025; 85347; 85378; 85610; 92978; 93005; 93306; 93458; 96361; 96372; 96374; 99152; 99153; 99285; C1725; C1753; C1760; C1769; C1874; C1887; C1894; C9600; G0269; G0378; J1644; J1650; J1815; J2250; J3010; J3490; J7030; Q0163; Q9967